=== PATIENT | female | born 1990 | race Caucasian/White ===

== ENCOUNTER 2016-03-01 17:45 | Emergency (ER) | payer OTHER ==
[2016-03-01] MEDS ORDERED: KETOROLAC TROMETHAMINE 60 MG/2 ML VIAL ONE (18:55)
== END 2016-03-01 19:05 | disposition home or self-care (01) ==
LOC: ED 17:45
DX: M54.5 Low back pain (principal); F17.210 Nicotine dependence, cigarettes, uncomplicated